=== PATIENT | female | born 2000 | race Caucasian/White ===

== ENCOUNTER 2025-05-12 11:17 | Inpatient (IN) | payer BC ==
[2025-05-12] MEDS ORDERED: Ondansetron 4 MG/2 ML SDV IVPUSH PRN (11:50)
[2025-05-12] MEDS ORDERED: Carboprost Tromethamine 250 MCG/1 ML Amp IM PRN ×2 (11:50→18:05)
[2025-05-12] MEDS ORDERED: Sodium Chloride 0.9% 10 ML Syringe FLUSH PRN ×2 (11:50→18:05)
[2025-05-12] MEDS ORDERED: Lactated Ringers 1,000 ML IV SCH (12:00)
[2025-05-12] MEDS ORDERED: Oxytocin/Lactated Ringers 30 UNIT/500 ML BAG IV SCH (12:00)
[2025-05-12 13:56] LABS: PLATELET COUNT,PLT 216.0 10^3/uL (150-450); RED BLOOD CELL COUNT 4.59 10^6/uL (4.2-5.4); WHITE BLOOD CELL COUNT,WBC 11.3 10^3/uL (5.0-10.0)
[2025-05-12] MEDS: fentaNYL 100 MCG/2 ML SDV IVPUSH PRN (14:11)
[2025-05-12] MEDS: fentaNYL 100 MCG/2 ML SDV IVPUSH ONE (17:04)
[2025-05-12] MEDS: Oxytocin/Normal Saline 30 UNIT/500 ML BAG IV SCH (17:35)
[2025-05-12] MEDS: Lidocaine 1% PF 2 ML SDV INFILT ONE (17:37)
[2025-05-12] MEDS: Lidocaine 1% 4 ML ONE (17:37)
[2025-05-12] MEDS ORDERED: Oxytocin/Normal Saline 30 UNIT/500 ML BAG IV SCH (18:00)
[2025-05-12] MEDS ORDERED: Oxytocin 10 Units/1 ML SDV IM PRN (18:05)
[2025-05-12] MEDS ORDERED: Misoprostol 50 MCG (1/2 of 100 MCG) Tab PO PRN (18:09)
[2025-05-12] MEDS: Ketorolac 30 MG/ML SDV IVPUSH ONE (18:35)
[2025-05-12] MEDS: Lactated Ringers 1,000 ML IV ONE (19:48)
[2025-05-13] MEDS: Benzocaine/Menthol 20%-0.5% Spray 78 GM Cannister TOP PRN (04:57)
[2025-05-13] MEDS: Witch Hazel Medicated Pads 100/Jar TOP PRN (04:57)
[2025-05-13] MEDS: Prenatal Multivitamin with Calcium/Folic Acid/Iron Tab PO SCH (08:15)
== END 2025-05-13 19:35 | disposition home or self-care (01) | DRG 560 ==
LOC: DL.OBCHECK 11:17 → DL.OB 11:50 → OBSVTOIN 16:47 → DL.OB 16:47
PROVIDERS: ADMIT Family Medicine; ATTEND Family Medicine
PROC: 4A1HXCZ Monitoring of Products of Conception, Cardiac Rate, External Approach (ICD-10-PCS; principal; 2025-05-12)
PROC: 10E0XZZ Delivery of Products of Conception, External Approach (ICD-10-PCS; principal; 2025-05-12)
PROC: 0KQM0ZZ Repair Perineum Muscle, Open Approach (ICD-10-PCS; principal; 2025-05-12)
DX: O26.643 Intrahepatic cholestasis of pregnancy, third trimester (principal); O26.893 Other specified pregnancy related conditions, third trimester; O36.63X0 Maternal care for excessive fetal growth, third trimester, not applicable or unspecified; O70.1 Second degree perineal laceration during delivery; Z3A.38 38 weeks gestation of pregnancy; Z79.899 Other long term (current) drug therapy; Z90.49 Acquired absence of other specified parts of digestive tract; Z98.890 Other specified postprocedural states; Z37.0 Single live birth
CPT/HCPCS: 36415; 59409; 85027; 85461; 86850; 86900; 86901; A9270-GY; J1885; J2003; J2590; J2791; J3010